=== PATIENT | female | born 1950 | race Caucasian/White ===

== ENCOUNTER 2019-08-10 16:49 | Emergency (ER) | payer MEDICARE ==
[2019-08-10 19:20] VITALS: BP 182/86
== END 2019-08-10 19:20 | disposition home or self-care (01) ==
LOC: ED 16:49
DX: S42.251A Displaced fracture of greater tuberosity of right humerus, initial encounter for closed fracture (principal); S00.211A Abrasion of right eyelid and periocular area, initial encounter; W01.0XXA Fall on same level from slipping, tripping and stumbling without subsequent striking against object, initial encounter; Y92.009 Unspecified place in unspecified non-institutional (private) residence as the place of occurrence of the external cause